=== PATIENT | female | born 1940 | race Caucasian/White ===

== ENCOUNTER 2016-08-18 12:04 | Emergency (ER) | payer OTHER ==
[~2016-08-18] VITALS: Ht 170.2 cm; Wt 70.0 kg
[~2016-08-18 12:04] MED LIST: ACET500T3 PO; ASPI81CH37 CHEW; DONE5TAB7 PO; LISI10TA PO; MEMA1TAB2 PO; OXYB5TAB10 PO
[2016-08-18 12:05] VITALS: BP 183/81; PULSE 63; RESP 16; TEMP 97.3; O2SAT 96
[2016-08-18] MEDS ORDERED: LIDOCAINE HCL 1% PF 30 ML VIAL INFIL ONE (13:15)
--- NOTE | 2016-08-18 13:42 | PD ---
HPI Chief Complaint: Pain: Acute or Chronic Time Seen by Provider: 13:20 Travel History International Travel<30 days: No Contact w/Intl Traveler<30days: No Traveled to known affect area: No History of Present Illness HPI This is a 76 year old female with Alzheimer's who presents with her for evaluation of injury to the left second toenail. 2 days ago the patient's was attempting to cut off the toenail when he actually avulsed it at the root. This is been quite painful for her and she has had persistent pain and they are requesting that the toenail be removed completely. There was no other injury and she has no other complaints at this time. PFSH Past Medical History Hx Anticoagulant Therapy: No Alzheimer's Disease: Yes Cancer: No Cardiovascular Problems: Yes (HTN) High Cholesterol: Yes Dementia: Yes Diabetes: No Diminished Hearing: No Endocrine: No Gastrointestinal Disorders: Yes (VOLVULUS (X2) ) Genitourinary: Yes (URGENCY, INCONTINENCE) Hepatitis: No Hiatal Hernia: Yes (REPAIRED) Hypertension: Yes Immune Disorder: No Musculoskeletal: Yes (ARTHRITIS) Neurologic: Yes (ALZHIEMERS, VERTIGO) Psychiatric: Yes (DEMENTIA, ANXIETY) Reproductive: Yes (RETAINED PESSARY) Respiratory: No Immunizations Current: No Thyroid Disease: No Tetanus Vaccination: > 5 Years Menopausal: Yes Past Surgical History Abdominal Surgery: Yes (gastric volvulus x2) AICD: No Eye Surgery: Yes (BILL. CATARACT EXTRACT.) Genitourinary Surgery: Yes (BLADDER SURGERY) Joint Replacement: No Oral Surgery: Yes (T & A) Pacemaker: No Tonsillectomy: Yes Other Surgery: Yes Social History Alcohol Use: No Tobacco Use: No (never) Substance Use: No Allergies-Medications (Allergen,Severity, Reaction): Coded Allergies: Penicillin (Verified Allergy, Severe, rash, 08/18/16) Reported Meds & Prescriptions Reported Meds & Active Scripts Active Reported Memantine 10 Mg Tab 20 Mg PO DAILY Acetaminophen 500 Mg Tab 500 Mg PO Q6H PRN Ditropan (Oxybutynin Chloride) 5 Mg Tab 5 Mg PO Q12HR Lisinopril-Hctz 10-12.5 Mg Tab 1 Tab PO DAILY Donepezil 5 Mg Tab 5 Mg PO HS Aspirin Low Dose (Aspirin) 81 Mg Chew 81 Mg CHEW DAILY Review of Systems Musculoskeletal: Positive: Pain Skin: Positive Other (positive for toenail avulsion) Physical Exam Narrative GENERAL: Well-nourished female in no acute distress SKIN: Warm and dry. HEAD: Atraumatic. Normocephalic. EYES: Pupils equal and round. No scleral icterus. No injection or drainage. ENT: No nasal bleeding or discharge. Mucous membranes pink and moist. NECK: Trachea midline. No JVD. CARDIOVASCULAR: Regular rate and rhythm. No murmur appreciated. RESPIRATORY: No accessory muscle use. Clear to auscultation. Breath sounds equal bilaterally. Extremities: Left second toenail is avulsed at the root but it is intact on the nail bed. It is quite loose and painful with manipulation. 2+ dorsalis pedis pulse. The feet are warm and well perfused bilaterally. Data Data Last Documented VS Vital Signs Date Time Temp Pulse Resp B/P Pulse Ox O2 Delivery O2 Flow Rate FiO2 08/18/16 13:14 80 18 08/18/16 12:05 97.3 183/81 96 Orders Lidocaine Pf 1% Inj (Xylocaine-Mpf 1% In (08/18/16 13:15) MDM Medical Decision Making Medical Screen Exam Complete: Yes Emergency Medical Condition: Yes Medical Record Reviewed: Yes Differential Diagnosis Toenail Avulsion, Open Fracture, Onychomycosis Narrative Course This is a 76 year old female who has a avulsion of her left second toenail, it is also breathing quite loose and has to be removed completely. An x-ray was ordered in triage prior to my examination and the patient was declining x-ray. I therefore canceled the x-ray that was ordered in triage. The nail was removed successfully. Stable for discharge. Procedures Procedure Narrative Toenail removal: Left second toe was prepped with Betadine, digital block performed with 1% lidocaine. The toenail was removed. Patient tolerated procedure well. Diagnosis Primary Impression: Toenail avulsion Qualified Code: S91.209A - Toenail avulsion, initial encounter Additional Instructions: Keep the area clean with soap and water and apply antibiotic cream. The nail will take several months to regrow. Med/Other Pt SpecificInfo: Wound Care Disposition: DISCHARGE HOME Condition: Stable Franky Parisi Aug 18, 2016 13:42
== END 2016-08-18 14:28 | disposition home or self-care (01) ==
LOC: NEPD 12:04
DX: S91.205A Unspecified open wound of left lesser toe(s) with damage to nail, initial encounter (principal); G30.9 Alzheimer's disease, unspecified; I10 Essential (primary) hypertension; W45.8XXA Other foreign body or object entering through skin, initial encounter; Y93.F9 Activity, other caregiving; Y92.009 Unspecified place in unspecified non-institutional (private) residence as the place of occurrence of the external cause
CPT/HCPCS: 11730

== ENCOUNTER 2016-09-03 19:54 | Emergency (ER) | payer OTHER ==
[~2016-09-03] VITALS: Ht 167.6 cm; Wt 75.0 kg
[2016-09-03 19:55] VITALS: BP 168/101; PULSE 82; RESP 22; TEMP 97.7; O2SAT 95
[2016-09-03] MEDS ORDERED: TYLE325T PO (20:12)
[2016-09-03] MEDS ORDERED: SODIUM CHLORIDE 0.9% FLUSH 10 ML FLUSH IV FLUSH PRN (20:15)
[2016-09-03] MEDS ORDERED: MORPHINE SULFATE 4 MG/ML INJ IV PUSH ONE (20:15)
[2016-09-03] MEDS ORDERED: ALUMINUM/MAGNESIUM/SIMETH 30 ML CUP PO ONE (20:15)
[2016-09-03] MEDS ORDERED: ONDANSETRON HCL 4 MG/2 ML VIAL IVP ONE (20:15)
[2016-09-03] MEDS ORDERED: LIDOCAINE VISCOUS 2% SOLN 15 ML UDC PO ONE (20:15)
--- NOTE | 2016-09-03 20:15 | PD ---
HPI Chief Complaint: Chest Pain Time Seen by Provider: 20:05 Travel History International Travel<30 days: No Contact w/Intl Traveler<30days: No Traveled to known affect area: No History of Present Illness HPI 76 year old female with history of Alzheimer's, hypertension, hyperlipidemia presents with her for evaluation of chest/abdominal pain. Symptoms started 30 minutes prior to arrival shortly after eating dinner. The patient was sitting when she developed a pain in the center of her chest as well as pain inferior to the left breast. Pain is a sharp pain, constant, aggravated by palpation of the left upper abdomen. No alleviating factors. Denies nausea or vomiting, shortness of breath, diarrhea or constipation, fevers or chills, cough or congestion, rash, calf or leg swelling, flank pain, dysuria. The patient is somewhat of a poor historian secondary to her history of dementia. Her complements the history. No other complaints. PFSH Past Medical History Hx Anticoagulant Therapy: No Alzheimer's Disease: Yes Cancer: No Cardiovascular Problems: Yes (HTN) High Cholesterol: Yes Dementia: Yes Diabetes: No Diminished Hearing: No Endocrine: No Gastrointestinal Disorders: Yes (VOLVULUS (X2) ) Genitourinary: Yes (URGENCY, INCONTINENCE) Hepatitis: No Hiatal Hernia: Yes (REPAIRED) Hypertension: Yes Immune Disorder: No Musculoskeletal: Yes (ARTHRITIS) Neurologic: Yes (ALZHIEMERS, VERTIGO) Psychiatric: Yes (DEMENTIA, ANXIETY) Reproductive: Yes (RETAINED PESSARY) Respiratory: No Immunizations Current: No Thyroid Disease: No Menopausal: Yes Past Surgical History Abdominal Surgery: Yes (gastric volvulus x2) AICD: No Eye Surgery: Yes (BILL. CATARACT EXTRACT.) Genitourinary Surgery: Yes (BLADDER SURGERY PESSARY REMOVED) Joint Replacement: No Oral Surgery: Yes (T & A) Pacemaker: No Tonsillectomy: Yes Other Surgery: Yes Social History Alcohol Use: No Tobacco Use: No (never) Substance Use: No Allergies-Medications (Allergen,Severity, Reaction): Coded Allergies: Penicillin (Verified Allergy, Severe, rash, 09/03/16) Reported Meds & Prescriptions Reported Meds & Active Scripts Active Reported Tylenol (Acetaminophen) 325 Mg Tab 1,000 Mg PO HS PRN Memantine 10 Mg Tab 20 Mg PO DAILY Ditropan (Oxybutynin Chloride) 5 Mg Tab 5 Mg PO Q12HR Lisinopril-Hctz 10-12.5 Mg Tab 1 Tab PO DAILY Donepezil 5 Mg Tab 5 Mg PO HS Aspirin Low Dose (Aspirin) 81 Mg Chew 81 Mg CHEW DAILY Review of Systems Except as stated in HPI: all other systems reviewed are Neg Physical Exam Narrative GENERAL: Well-developed well-nourished female in no acute distress SKIN: Warm and dry. HEAD: Atraumatic. Normocephalic. EYES: Pupils equal and round. No scleral icterus. No injection or drainage. ENT: No nasal bleeding or discharge. Mucous membranes pink and moist. NECK: Trachea midline. No JVD. CARDIOVASCULAR: Regular rate and rhythm. No murmur appreciated. RESPIRATORY: No accessory muscle use. Clear to auscultation. Breath sounds equal bilaterally. GASTROINTESTINAL: Abdomen soft, some tenderness to palpation left upper quadrant without guarding. No CVA tenderness. MUSCULOSKELETAL: No obvious deformities. No edema. NEUROLOGICAL: Awake and alert. No obvious cranial nerve deficits. Motor grossly within normal limits. Normal speech. PSYCHIATRIC: Appropriate mood and affect; insight and judgment normal. Data Data Last Documented VS Vital Signs Date Time Temp Pulse Resp B/P Pulse Ox O2 Delivery O2 Flow Rate FiO2 09/03/16 21:30 70 20 150/71 96 Room Air 09/03/16 19:55 97.7 Orders Complete Blood Count With Diff (09/03/16 20:10) Comprehensive Metabolic Panel (09/03/16 20:10) Lipase (09/03/16 20:10) Urinalysis - C+S If Indicated (09/03/16 20:10) Iv Access Insert/Monitor (09/03/16 20:10) Ecg Monitoring (09/03/16 20:10) Oximetry (09/03/16 20:10) Ondansetron Inj (Zofran Inj) (09/03/16 20:15) Sodium Chloride 0.9% Flush (Ns Flush) (09/03/16 20:15) Electrocardiogram (09/03/16 20:10) Morphine Inj (Morphine Inj) (09/03/16 20:15) Al-Mag Hy-Si 40-40-4 Mg/Ml Liq (Mag-Al P (09/03/16 20:15) Lidocaine 2% Viscous (Xylocaine 2% Visco (09/03/16 20:15) Ckmb (Isoenzyme) Profile (09/03/16 20:10) Troponin I (09/03/16 20:10) Act Partial Throm Time (Ptt) (09/03/16 20:10) Prothrombin Time / Inr (Pt) (09/03/16 20:10) Chest, Single Ap (09/03/16 20:15) Famotidine Inj (Pepcid Inj) (09/03/16 20:30) Potassium Chloride (Kcl) (09/03/16 21:30) Ct Abd/Pel W/O Iv Contrast (09/03/16 20:10) Labs Laboratory Tests Test 09/03/16 20:20 White Blood Count 9.0 TH/MM3 Red Blood Count 4.04 MIL/MM3 Hemoglobin 12.0 GM/DL Hematocrit 36.3 % Mean Corpuscular Volume 89.9 FL Mean Corpuscular Hemoglobin 29.7 PG Mean Corpuscular Hemoglobin 33.1 % Concent Red Cell Distribution Width 13.4 % Platelet Count 313 TH/MM3 Mean Platelet Volume 8.9 FL Neutrophils (%) (Auto) 51.2 % Lymphocytes (%) (Auto) 35.6 % Monocytes (%) (Auto) 7.7 % Eosinophils (%) (Auto) 4.0 % Basophils (%) (Auto) 1.5 % Neutrophils # (Auto) 4.6 TH/MM3 Lymphocytes # (Auto) 3.2 TH/MM3 Monocytes # (Auto) 0.7 TH/MM3 Eosinophils # (Auto) 0.4 TH/MM3 Basophils # (Auto) 0.1 TH/MM3 CBC Comment DIFF FINAL Differential Comment Prothrombin Time 10.5 SEC Prothromb Time International 1.0 RATIO Ratio Activated Partial 24.5 SEC Thromboplast Time Sodium Level 137 MEQ/L Potassium Level 3.2 MEQ/L Chloride Level 103 MEQ/L Carbon Dioxide Level 25.3 MEQ/L Anion Gap 9 MEQ/L Blood Urea Nitrogen 25 MG/DL Creatinine 1.91 MG/DL Estimat Glomerular Filtration 26 ML/MIN Rate Random Glucose 110 MG/DL Calcium Level 9.0 MG/DL Total Bilirubin 0.6 MG/DL Aspartate Amino Transf 22 U/L (AST/SGOT) Alanine Aminotransferase 23 U/L (ALT/SGPT) Alkaline Phosphatase 147 U/L Total Creatine Kinase 88 U/L Troponin I LESS THAN 0.02 NG/ML Total Protein 7.6 GM/DL Albumin 3.9 GM/DL Lipase 170 U/L MDM Medical Decision Making Medical Screen Exam Complete: Yes Emergency Medical Condition: Yes Medical Record Reviewed: Yes Interpretation(s) EKG normal sinus rhythm Abdomen and pelvis CONCLUSION: 1. Mild diverticulosis with no definite inflammatory change. No oral contrast was given during this sensitivity. 2. Stable left ovarian cyst. 3. Small atrophic kidneys right greater than left. The right kidney has decreased in size compared to the prior study. 4. Cholelithiasis with no gallbladder wall thickening or pericholecystic fluid. 5. The spleen and pancreas remain unremarkable. CBC unremarkable CMP BUN 25 creatinine 1.91 consistent with previous kidney function on record. Potassium is 3.2. CK and troponin are negative. Lipase is normal. Differential Diagnosis Gastritis, pancreatitis, coronary syndrome, costochondritis, pneumothorax, pericarditis, myocarditis, PE, aortic dissection Narrative Course This is a 76-year-old female with history of Alzheimer's who presents with 30 minutes of substernal chest pain as well as pain inferior to the left breast. On examination she has some tenderness to palpation left upper quadrant of the abdomen. Examination is otherwise unremarkable. Plan is for basic lab work on 12-lead EKG, ECG monitored pulse oximetry, CT abdomen and pelvis, chest x-ray. The patient will be given morphine and Zofran. She took 2 baby aspirin prior to arrival. The patient's lab work is been reviewed. She has a GFR of [address] was changed without contrast. The patient's lab work and imaging studies a been reviewed. Potassium is 3.2 otherwise no acute abnormalities. She was given oral potassium and chloride. During her ED stay her symptoms resolved completely. Per chart review the patient was seen here in February with complaints of chest pain and she left AMA when it was recommended that she be admitted into the chest pain Center. Given her age, risk factors, the recommendation today was that the patient be admitted to the chest pain center but the patient is very adamant that she would prefer to leave and does not want to be admitted. She and her understand the risks of this decision. They are planning on calling the primary care physician tomorrow in order to get an appointment with a credit intern. I stressed the importance of following up with a credit intern for a stress test urgently. The patient and her understand that she can return at any time or any concerns. She is stable for discharge. Procedures EKG Prior to Arrival: Yes Diagnosis Primary Impression: Chest pain Qualified Code: R07.9 - Chest pain, unspecified type Additional Impression: Abdominal pain Qualified Code: R10.12 - Left upper quadrant pain Additional Instructions: As discussed, follow-up with your primary care physician tomorrow. Discussed following up with a credit intern for further evaluation of her episodic chest pain. Return for any acutely new or worsening symptoms. Med/Other Pt SpecificInfo: No Change to Meds Disposition: 01 DISCHARGE HOME Condition: Stable Franky Parisi Sep 03, 2016 20:14
[2016-09-03] MEDS ORDERED: FAMOTIDINE 20 MG/2 ML VIAL IV PUSH ONE (20:30)
--- NOTE | 2016-09-03 20:49 | RADRPT ---
EXAM DATE/TIME: 09/03/2016 20:44 [facility] COMPARISON: CHEST SINGLE AP, February 26, 2016, 20:48. INDICATIONS : Chest pain MEDICAL HISTORY : Hypertension. Dementia SURGICAL HISTORY : None. ENCOUNTER: Initial ACUITY: 1 day PAIN SCORE: Non-responsive. LOCATION: Bilateral chest FINDINGS: A single view of the chest demonstrates the lungs to be symmetrically aerated without evidence of mas s, infiltrate or effusion. The costophrenic angles are not well-visualized. The study is Midinspirato ry. Tracheal calcifications are present. There are overlying echocardiogram leads. The cardiomediast inal contours are unremarkable. Osseous structures are intact. CONCLUSION: No acute disease. The costophrenic angles are not well-visualized. Rony Thomas MD on September 03, 2016 at 20:46 Board Certified Radiologist. This report was verified electronically.
[2016-09-03 21:00] LABS: AUTOMATED NEUTROPHIL # 4.6 TH/MM3 (1.8-7.7); BASOPHIL # 0.1 TH/MM3 (0-0.2); BASOPHIL % 1.5 % (0.0-2.0); EOSINOPHIL # 0.4 TH/MM3 (0-0.4); HEMATOCRIT 36.3 % (35.0-46.0); HEMO FLAGS DIFF FINAL; LYMPH % 35.6 % (9.0-44.0); LYMPHOCYTE # 3.2 TH/MM3 (1.0-4.8); MEAN CELL VOLUME 89.9 FL (80.0-100.0); MEAN CORPUSCULAR HEMOGLOBIN 29.7 PG (27.0-34.0); MEAN CORPUSCULAR HGB CONC 33.1 % (32.0-36.0); MONO % 7.7 % (0.0-8.0); NEUT % 51.2 % (16.0-70.0); PLATELET COUNT 313 TH/MM3 (150-450); RED BLOOD COUNT 4.04 MIL/MM3 (4.00-5.30); RED CELL DISTRIBUTION WIDTH 13.4 % (11.6-17.2)
[2016-09-03 21:05] LABS: APTT (PATIENT) 24.5 SEC (24.3-30.1); PROTHROMBIN TIME - PATIENT 10.5 SEC (9.8-11.6)
[2016-09-03 21:21] LABS: ALT (GPT) 23 U/L (10-53); ANION GAP 9 MEQ/L (5-15); AST (GOT) 22 U/L (15-37); BICARBONATE 25.3 MEQ/L (21.0-32.0); BLOOD UREA NITROGEN 25 MG/DL (7-18); CHLORIDE 103 MEQ/L (98-107); GLOMERULAR FILTRATION RATE 26 ML/MIN (>89); POTASSIUM 3.2 MEQ/L (3.5-5.1); SODIUM (NA) 137 MEQ/L (136-145)
[2016-09-03 21:26] LABS: ALKALINE PHOSPHATASE 147 U/L (45-117); TOTAL BILIRUBIN ADULT 0.6 MG/DL (0.2-1.0)
[2016-09-03 21:30] VITALS: BP 150/71; PULSE 70; RESP 20; O2SAT 96
[2016-09-03 21:30] LABS: CREATINE KINASE 88 U/L (26-192)
[2016-09-03] MEDS ORDERED: POTASSIUM CHLORIDE 20 MEQ CONTROLLED RELEASE TAB PO ONE (21:30)
--- NOTE | 2016-09-03 22:01 | RADRPT ---
EXAM DATE/TIME: 09/03/2016 21:39 [facility] COMPARISON: CT ABDOMEN & PELVIS W/O CONTRAST, September 22, 2015, 8:13. INDICATIONS : Left upper quad abdomen pain. ORAL CONTRAST: No oral contrast ingested. RADIATION DOSE: 9.56 CTDIvol (mGy) MEDICAL HISTORY : Hypertension. Hernia, hiatal. SURGICAL HISTORY : Hernia repair,bladder surgery ENCOUNTER: Initial ACUITY: 1 day PAIN SCALE: 5/10 LOCATION: Left upper quadrant TECHNIQUE: Volumetric scanning of the abdomen and pelvis was performed. Using automated exposure control and ad justment of the mA and/or kV according to patient size, radiation dose was kept as low as reasonably achievable to obtain optimal diagnostic quality images. DICOM format image data is available electro nically for review and comparison. FINDINGS: LOWER LUNGS: The visualized lower lungs are clear. LIVER: Homogeneous density without lesion. There is no dilation of the biliary tree. There is a single 5 mm calcified gallstone with no wall thickening or pericholecystic fluid. SPLEEN: Normal size without lesion. PANCREAS: Within normal limits. KIDNEYS: The kidneys are small and atrophic in appearance right greater than left. Right kidney has decreased in size compared to the prior study. There are no renal calculi or obstruction. There is no solid mas s, stone, or hydronephrosis. There are bilateral simple cysts. ADRENAL GLANDS: Within normal limits. VASCULAR: There is no aortic aneurysm. BOWEL/MESENTERY: The stomach, small bowel, and colon demonstrate no acute abnormality. There is no free intraperitone al air or fluid. Multiple diverticuli are again noted. There is no definite inflammatory change. No o ral contrast was given This sensitivity. ABDOMINAL WALL: Within normal limits. RETROPERITONEUM: There is no lymphadenopathy. BLADDER: No wall thickening or mass. Small gas bubbles noted in the anterior bladder. REPRODUCTIVE: There is a stable left adnexal cyst measuring approximately 3 cm. INGUINAL: There is no lymphadenopathy or hernia. MUSCULOSKELETAL: Within normal limits for patient age. CONCLUSION: 1. Mild diverticulosis with no definite inflammatory change. No oral contrast was given during this s ensitivity. 2. Stable left ovarian cyst. 3. Small atrophic kidneys right greater than left. The right kidney has decreased in size compared to the prior study. 4. Cholelithiasis with no gallbladder wall thickening or pericholecystic fluid. 5. The spleen and pancreas remain unremarkable. Rony Thomas MD on September 03, 2016 at 21:53 Board Certified Radiologist. This report was verified electronically.
--- NOTE | 2016-09-04 04:59 | EKG ---
Date Performed: 09/03/2016 Time Performed: 20:20:08 PTAGE: 76 years EKG: Sinus rhythm NONSPECIFIC T-WAVE ABNORMALITY BORDERLINE ECG COMPARED TO PRIOR ELECTROCARDIOGRAM, Nonspecific T wav e changes are present. PREVIOUS TRACING : 02/26/2016 20.40 DOCTOR: Chris Kidd Interpretating Date/Time 09/04/2016 04:58:41
== END 2016-09-03 22:21 | disposition home or self-care (01) ==
LOC: NEPE 19:54
DX: R07.9 Chest pain, unspecified (principal); R10.12 Left upper quadrant pain; G30.9 Alzheimer's disease, unspecified; F02.80 Dementia in other diseases classified elsewhere, unspecified severity, without behavioral disturbance, psychotic disturbance, mood disturbance, and anxiety; K80.20 Calculus of gallbladder without cholecystitis without obstruction; N26.1 Atrophy of kidney (terminal); N83.202 Unspecified ovarian cyst, left side; K57.90 Diverticulosis of intestine, part unspecified, without perforation or abscess without bleeding; I10 Essential (primary) hypertension
CPT/HCPCS: 71010; 74176; 80053; 82550; 83690; 84484; 85025; 85610; 85730; 93005; 96374; 96375; 99285; J2270; J2405